=== PATIENT | female | born 1960 | race Caucasian/White ===

== ENCOUNTER 2017-08-30 12:49 | Emergency (ER) | payer BC ==
[2017-08-30] MEDS ORDERED: SODIUM CHLORIDE 0.9% 500 ML IV STA (12:55)
[2017-08-30] MEDS ORDERED: MECLIZINE 12.5 MG TAB PO STA (12:55)
[2017-08-30] MEDS ORDERED: SODIUM CHLORIDE 0.9% 1,000 ML IV STA ×2 (12:55→14:53)
--- NOTE | 2017-08-30 13:00 | ED ---
Dizziness HPI - General Stated Complaint: dizziness Time Seen by Provider: 08/30/17 12:49 Source: patient, EMS, RN notes reviewed Mode of arrival: EMS - History of Present Illness Initial Comments: This is a 57-year-old female presents by EMS with complaints of sudden onset of dizziness but 2 hours ago. She worse she has some chills with this no fevers no sweats no overt headache he states the sprain sensation was worse with her eyes open better with her eyes closed no focal weakness. Of note she was recently exposed to flu which her daughter does have. She went to bed last night feeling well and woke up this morning feeling well. Per parents patient was anxious and was noted be hyperventilating upon their initial evaluation. Also of note patient does admit that she did run 3 miles this morning prior to the events of the day. MD Complaint: dizziness, lightheadedness Timing: sudden onset Description: sense of movement - Related Data Home Medications Medication Instructions Recorded Confirmed Cetirizine HCl [Zyrtec] 10 mg PO HS 08/30/17 08/30/17 Previous Rx's Medication Instructions Recorded Meclizine [Antivert] 25 mg PO TID #20 tab 08/30/17 Potassium Chloride ER [K-Dur 20] 20 meq PO BID #14 tab 08/30/17 Allergies Allergy/AdvReac Type Severity Reaction Status Date / Time Iodinated Contrast- Oral and Allergy Severe Anaphylaxis Verified 08/30/17 13:18 IV Dye Review of Systems ROS Statement: Those systems with pertinent positive or pertinent negative responses have been documented in the HPI. ROS Other: All systems not noted in ROS Statement are negative. General Exam - General Exam Comments Initial Comments: This is a well-developed well-nourished awake alert oriented 3 female General appearance: alert, in no apparent distress Head exam: Present: atraumatic, normocephalic, normal inspection Eye exam: Present: normal appearance, PERRL, EOMI. Absent: scleral icterus, conjunctival injection, periorbital swelling ENT exam: Present: normal exam, mucous membranes moist Neck exam: Present: normal inspection. Absent: tenderness, meningismus, lymphadenopathy Respiratory exam: Present: normal lung sounds bilaterally. Absent: respiratory distress, wheezes, rales, rhonchi, stridor Cardiovascular Exam: Present: regular rate, normal rhythm, normal heart sounds. Absent: systolic murmur, diastolic murmur, rubs, gallop, clicks GI/Abdominal exam: Present: soft, normal bowel sounds. Absent: distended, tenderness, guarding, rebound, rigid Extremities exam: Present: normal inspection, full ROM, normal capillary refill. Absent: tenderness, pedal edema, joint swelling, calf tenderness Back exam: Present: normal inspection Neurological exam: Present: alert, oriented X3, CN II-XII intact Psychiatric exam: Present: normal affect, normal mood Skin exam: Present: warm, dry, intact, normal color. Absent: rash Course Vital Signs 08/30/17 08/30/17 08/30/17 12:50 14:25 15:13 Temperature 98.3 F Pulse Rate 70 84 80 Respiratory 20 15 16 Rate Blood Pressure 108/55 121/61 110/59 O2 Sat by Pulse 100 100 98 Oximetry EKG Findings - EKG Results: EKG: interpreted by NILDA, sinus rhythm (Sinus rhythm of 68. Interval 192 QRS duration 80 daily since QTC of 440/467 possible left atrial enlargement no acute ST-T wave changes.) Medical Decision Making - Medical Decision Making The patient is feeling much improved at this time she does present with symptoms consistent with vertigo as well as dehydration. She also has hypokalemia. We a long discussion regarding the findings she'll be discharged home with instructions increase oral fluids and potassium supplement. Follow- up with her doctor and return when necessary - Lab Data Result diagrams: 08/30/17 13:03 08/30/17 13:03 Lab Results 08/30/17 08/30/17 08/30/17 Range/Units 13:03 13:03 13:03 WBC 5.6 (3.8-10.6) k/uL RBC 4.50 (3.80-5.40) m/uL Hgb 12.9 (11.4-16.0) gm/dL Hct 37.3 (34.0-46.0) % MCV 82.9 (80.0-100.0) fL MCH 28.7 (25.0-35.0) pg MCHC 34.6 (31.0-37.0) g/dL RDW 14.1 (11.5-15.5) % Plt Count 165 (150-450) k/uL Neutrophils % 64 % Lymphocytes % 28 % Monocytes % 5 % Eosinophils % 1 % Basophils % 0 % Neutrophils # 3.6 (1.3-7.7) k/uL Lymphocytes # 1.6 (1.0-4.8) k/uL Monocytes # 0.3 (0-1.0) k/uL Eosinophils # 0.1 (0-0.7) k/uL Basophils # 0.0 (0-0.2) k/uL Sodium 140 (137-145) mmol/L Potassium 3.0 L* (3.5-5.1) mmol/L Chloride 107 (98-107) mmol/L Carbon Dioxide 20 L (22-30) mmol/L Anion Gap 13 mmol/L BUN 17 (7-17) mg/dL Creatinine 0.48 L (0.52-1.04) mg/dL Est GFR (MDRD) Af Amer >60 (>60 ml/min/1.73 sqM) Est GFR (MDRD) Non-Af >60 (>60 ml/min/1.73 sqM) Glucose 102 H (74-99) mg/dL Calcium 8.9 (8.4-10.2) mg/dL Magnesium 1.9 (1.6-2.3) mg/dL Total Bilirubin 0.3 (0.2-1.3) mg/dL AST 20 (14-36) U/L ALT 18 (9-52) U/L Alkaline Phosphatase 61 (38-126) U/L Total Creatine Kinase 72 (30-135) U/L CK-MB (CK-2) 1.2 (0.0-2.4) ng/mL CK-MB (CK-2) Rel Index 1.7 Total Protein 6.4 (6.3-8.2) g/dL Albumin 3.9 (3.5-5.0) g/dL Urine Color Urine Appearance (Clear) Urine pH (5.0-8.0) Ur Specific [place] (1.001-1.035) Urine Protein (Negative) Urine Glucose (UA) (Negative) Urine Ketones (Negative) Urine Blood (Negative) Urine Nitrite (Negative) Urine Bilirubin (Negative) Urine Urobilinogen (<2.0) mg/dL Ur Leukocyte Esterase (Negative) Urine WBC Clumps (None) /hpf Urine Bacteria (None) /hpf Urine Mucus (None) /hpf Urine Yeast (Budding) (None) /hpf Influenza Type A RNA (Not Detectd) Influenza Type B (PCR) (Not Detectd) 08/30/17 08/30/17 Range/Units 13:03 14:29 WBC (3.8-10.6) k/uL RBC (3.80-5.40) m/uL Hgb (11.4-16.0) gm/dL Hct (34.0-46.0) % MCV (80.0-100.0) fL MCH (25.0-35.0) pg MCHC (31.0-37.0) g/dL RDW (11.5-15.5) % Plt Count (150-450) k/uL Neutrophils % % Lymphocytes % % Monocytes % % Eosinophils % % Basophils % % Neutrophils # (1.3-7.7) k/uL Lymphocytes # (1.0-4.8) k/uL Monocytes # (0-1.0) k/uL Eosinophils # (0-0.7) k/uL Basophils # (0-0.2) k/uL Sodium (137-145) mmol/L Potassium (3.5-5.1) mmol/L Chloride (98-107) mmol/L Carbon Dioxide (22-30) mmol/L Anion Gap mmol/L BUN (7-17) mg/dL Creatinine (0.52-1.04) mg/dL Est GFR (MDRD) Af Amer (>60 ml/min/1.73 sqM) Est GFR (MDRD) Non-Af (>60 ml/min/1.73 sqM) Glucose (74-99) mg/dL Calcium (8.4-10.2) mg/dL Magnesium (1.6-2.3) mg/dL Total Bilirubin (0.2-1.3) mg/dL AST (14-36) U/L ALT (9-52) U/L Alkaline Phosphatase (38-126) U/L Total Creatine Kinase (30-135) U/L CK-MB (CK-2) (0.0-2.4) ng/mL CK-MB (CK-2) Rel Index Total Protein (6.3-8.2) g/dL Albumin (3.5-5.0) g/dL Urine Color Yellow Urine Appearance Turbid H (Clear) Urine pH 8.5 H (5.0-8.0) Ur Specific [place] 1.014 (1.001-1.035) Urine Protein 1+ H (Negative) Urine Glucose (UA) Negative (Negative) Urine Ketones 2+ H (Negative) Urine Blood Negative (Negative) Urine Nitrite Negative (Negative) Urine Bilirubin Negative (Negative) Urine Urobilinogen <2.0 (<2.0) mg/dL Ur Leukocyte Esterase Negative (Negative) Urine WBC Clumps Few H (None) /hpf Urine Bacteria Rare H (None) /hpf Urine Mucus Occasional H (None) /hpf Urine Yeast (Budding) Many H (None) /hpf Influenza Type A RNA Not Detected (Not Detectd) Influenza Type B (PCR) Not Detected (Not Detectd) Disposition Clinical Impression: Benign paroxysmal positional vertigo, Dehydration, Hypokalemia Disposition: HOME SELF-CARE Condition: Good Instructions: Dizziness (ED), Dehydration (ED), Hypokalemia (ED) Prescriptions: Meclizine [Antivert] 25 mg PO TID #20 tab Potassium Chloride ER [K-Dur 20] 20 meq PO BID #14 tab Referrals: None,Stated [Primary Care Provider] - 1-2 days
[2017-08-30 13:18] LABS: Basophils % (A) 0 %; Eosinophils # (A) 0.1 k/uL (0-0.7); Eosinophils % (A) 1 %; HCT 37.3 % (34.0-46.0); HGB 12.9 gm/dL (11.4-16.0); Lymphocytes # (A) 1.6 k/uL (1.0-4.8); Lymphocytes % (A) 28 %; MCH 28.7 pg (25.0-35.0); MCHC 34.6 g/dL (31.0-37.0); MCV 82.9 fL (80.0-100.0); Mean Platelet Volume 8.9; Monocytes # (A) 0.3 k/uL (0-1.0); Monocytes % (A) 5 %; Neutrophils # (A) 3.6 k/uL (1.3-7.7); Neutrophils % (A) 64 %; Platelet Count 165 k/uL (150-450); RDW 14.1 % (11.5-15.5); WBC 5.6 k/uL (3.8-10.6)
[2017-08-30 13:27] LABS: ALT 18 U/L (9-52); AST 20 U/L (14-36); Albumin 3.9 g/dL (3.5-5.0); Alkaline Phosphatase 61 U/L (38-126); Anion Gap 13 mmol/L; Blood Urea Nitrogen 17 mg/dL (7-17); Calcium 8.9 mg/dL (8.4-10.2); Carbon Dioxide 20 mmol/L (22-30); Chloride 107 mmol/L (98-107); Glucose 102 mg/dL (74-99); Magnesium 1.9 mg/dL (1.6-2.3); Sodium 140 mmol/L (137-145); Total Bilirubin 0.3 mg/dL (0.2-1.3); Total Protein 6.4 g/dL (6.3-8.2)
[2017-08-30 13:47] LABS: Creatine Kinase MB 1.2 ng/mL (0.0-2.4)
--- NOTE | 2017-08-30 14:25 | XR ---
EXAMINATION TYPE: XR chest 2V DATE OF EXAM: 08/30/2017 COMPARISON: NONE HISTORY: Cough, shortness of breath TECHNIQUE: Frontal and lateral views of the chest are obtained. FINDINGS: There is no focal air space opacity, pleural effusion, or pneumothorax seen. The cardiac silhouette size is within normal limits. There are overlying cardiac leads. Apical pleural thickening is present. The osseous structures are intact. IMPRESSION: No acute cardiopulmonary process.
[2017-08-30 14:38] LABS: Appearance,Urine Turbid (Clear); Bacteria,Urine Rare /hpf; Bilirubin,Urine Negative (Negative); Blood,Urine Negative (Negative); Budding Yeast,Urine Many /hpf; Color,Urine Yellow; Glucose,Urine (UA) Negative (Negative); Ketones,Urine 2+ (Negative); Leukocyte Esterase,Urine Negative (Negative); Mucus,Urine Occasional /hpf; Nitrite,Urine Negative (Negative); PH, Urine 8.5 (5.0-8.0); Protein,Urine 1+ (Negative); Specific Gravity,Urine 1.014 (1.001-1.035); Urobilinogen,Urine <2.0 mg/dL (<2.0)
[2017-08-30] MEDS ORDERED: POTASSIUM CHLORIDE ER 20 MEQ TAB.ER PO STA ×2 (14:53→15:45)
[2017-08-30] MEDS ORDERED: POTASSIUM CHLORIDE 20 MEQ in SODIUM CHLORIDE 0.9% 100 ML IVPB STA (14:53)
[2017-08-30 15:14] VITALS: RESP 16
[2017-08-30 16:33] VITALS: BP 131/63; PULSE 82; TEMP 97.9
== END 2017-08-30 16:34 | disposition home or self-care (01) ==
LOC: EC 12:49
DX: H81.10 Benign paroxysmal vertigo, unspecified ear (principal); E87.6 Hypokalemia; E86.0 Dehydration; R68.83 Chills (without fever); R06.4 Hyperventilation; Z79.899 Other long term (current) drug therapy; Z91.041 Radiographic dye allergy status; Z53.8 Procedure and treatment not carried out for other reasons
CPT/HCPCS: 36415; 71046; 80053; 81001; 82550; 82553; 83735; 85025; 87502; 93005; 96360; 96361; 99285

== ENCOUNTER → 2017-11-19 | Outpatient (CLI) | payer BC ==
--- NOTE | 2017-11-19 16:25 | BD ---
EXAMINATION TYPE: MG DEXA axial skeleton. DATE OF EXAM: 11/19/2017 COMPARISON: NONE CLINICAL HISTORY: 57-year-old female postmenopausal screening without HRT Height: 67 Weight: 145.3 FRAX RISK QUESTIONS: Alcohol (3 or more units per day): no Family History (Parent hip fracture): no Glucocorticoids (More than 3mos): no (Ex: prednisone, prednisolone, methylprednisolone, dexamethasone, and hydrocortisone). History of Fracture in Adulthood: no Secondary Osteoporosis: 1. Type 1 Diabetes: no 2. Hyperthyroidism: no 3. Menopause before 45: no 4. Malnutrition: no 5. Chronic liver disease: no Rheumatoid Arthritis: no Current Tobacco Use: no RISK FACTORS HISTORY OF: Family History of Osteoporosis: yes Active: yes Diet low in dairy products/other sources of calcium: no Postmenopausal woman: 8 years ago Lost more than 2 inches in height since high school: no Frequent falls: no MEDICATIONS: none Additional History: EXAM MEASUREMENTS: Bone mineral densitometry was performed using the [employer]eads System. Bone mineral density as measured about the Lumbar spine is: ----- L1-L4(G/cm2): 1.133 T Score Values are as follows: ----- L2: -0.8 ----- L3: -0.4 ----- L4: -0.5 ----- L1-L4: -0.6 Bone mineral density baseline Bone mineral density about the R hip (g/cm2): 1.045 Bone mineral density about the L hip (g/cm2): 1.039 T Score values are as follows: -----R Neck: 0.1 -----L Neck: 0.0 -----R Total: 0.2 -----L Total: 0.3 Bone mineral density baseline IMPRESSION: Normal (Values between +1 and -1 indicate normal bone mass). Consider repeating this study in 5 year s or sooner if there is some new clinical indication. NOTE: T-SCORE=SD OF THE YOUNG ADULT MEAN.
--- NOTE | 2017-11-20 07:49 | MM ---
Reason for exam: additional evaluation requested from prior study. Last mammogram was performed 14 years and 8 months ago. History: Patient is postmenopausal and is nulliparous. Physical Findings: Nurse Summary: 0.5cm nodule in the right breast at 10 o'clock (nurse kp). MG Diagnostic Mammo w CAD GARRET Bilateral CC and MLO view(s) were taken. XCCL, ML, and spot compression MLO view(s) were taken of the right breast. No prior studies available for comparison. The breast tissue is heterogeneously dense. This may lower the sensitivity of mammography. There is no discrete abnormality. 11 o'clock palpable marker right breast. These results were verbally communicated with the patient and result sheet given to the patient on 11/19/17. ASSESSMENT: Incomplete: need additional imaging evaluation, BI-RAD 0 RECOMMENDATION: Ultrasound of the right breast. (palpable)
--- NOTE | 2017-11-20 08:01 | USB ---
Reason for exam: additional evaluation requested from abnormal screening. History: Patient is postmenopausal and is nulliparous. US Breast RT Right breast ultrasound includes all four quadrants, the retroareolar region and axilla. Finding demonstrates a 0.7 x 0.8 x 0.2cm oval, cystic cluster at 10 o'clock versus complex cyst. 6 month follow up recommended. No abnormality seen at the 11 o'clock palpable area. Dense tissue is present here. These results were verbally communicated with the patient and result sheet given to the patient on 11/19/17. ASSESSMENT: Probably benign, BI-RAD 3 RECOMMENDATION: Ultrasound of the right breast in 6 months.
== END | disposition home or self-care (01) ==
LOC: RADMAMWWP 13:45
PROVIDERS: ATTEND Family Medicine
DX: N63.11 Unspecified lump in the right breast, upper outer quadrant (principal); R92.8 Other abnormal and inconclusive findings on diagnostic imaging of breast; Z78.0 Asymptomatic menopausal state
CPT/HCPCS: 77066; 77080

== ENCOUNTER 2020-06-02 11:55 | Observation (INO) | payer BC ==
[2020-06-02] MEDS ORDERED: HYDROcodone/APAP 5-325MG 1 EACH TAB PO STA (12:25)
--- NOTE | 2020-06-02 12:27 | ED ---
Wound/Laceration HPI - General Source: patient, RN notes reviewed, old records reviewed Mode of arrival: wheelchair Limitations: no limitations <Shahana Shah - Last Filed: 06/02/20 15:16> <Ingrid Alfaro - Last Filed: 06/06/20 22:20> - General Chief Complaint: Wound/Laceration Stated Complaint: fall face lac Time Seen by Provider: 06/02/20 12:08 - History of Present Illness Initial Comments: Patient is a 60-year-old female who presents emergency department today with chief complaint of a laceration over her nose. Patient reports that she tripped over her cat landing on the couch striking her face while wearing glasses on the edge of the couch. She reports that she has a laceration over the bridge of her nose with swelling and pain. She also has a laceration over her right eyebrow. She complains of frontal headache. Patient denies fevers or chills. Patient is questioning of her tetanus shot is up-to-date. (Shahana Shah) - Related Data Home Medications Medication Instructions Recorded Confirmed Cetirizine HCl [Zyrtec] 10 mg PO HS 08/30/17 06/02/20 Multivitamins, Thera [Multivitamin 1 tab PO DAILY 06/02/20 06/02/20 (formulary)] Allergies Allergy/AdvReac Type Severity Reaction Status Date / Time Iodinated Contrast Media Allergy Severe Anaphylaxis Verified 06/02/20 12:48 [Iodinated Contrast- Oral and IV Dye] Review of Systems ROS Other: All systems not noted in ROS Statement are negative. <Shahana Shah - Last Filed: 06/02/20 15:16> ROS Other: All systems not noted in ROS Statement are negative. <Ingrid Alfaro - Last Filed: 06/06/20 22:20> ROS Statement: Those systems with pertinent positive or pertinent negative responses have been documented in the HPI. Past Medical History Past Medical History: No Reported History History of Any Multi-Drug Resistant Organisms: None Reported Past Surgical History: No Surgical Hx Reported Past Psychological History: No Psychological Hx Reported Smoking Status: Never smoker Past Alcohol Use History: None Reported Past Drug Use History: None Reported <Shahana Shah - Last Filed: 06/02/20 15:16> General Exam Limitations: no limitations General appearance: alert, in no apparent distress Head exam: Present: atraumatic, normocephalic, normal inspection Eye exam: Present: normal appearance, PERRL, EOMI. Absent: scleral icterus, conjunctival injection, periorbital swelling ENT exam: Present: normal exam, other ( is a 6 cm laceration linear over t he nasal bridge extending from the tip of the nose to the eyebrow.). Absent: mucous membranes moist Neck exam: Present: normal inspection. Absent: tenderness, meningismus, l ymphadenopathy Respiratory exam: Present: normal lung sounds bilaterally. Absent: respiratory distress, wheezes, rales, rhonchi, stridor Cardiovascular Exam: Present: regular rate, normal rhythm, normal heart sounds. Absent: systolic murmur, diastolic murmur, rubs, gallop, clicks GI/Abdominal exam: Present: soft, normal bowel sounds. Absent: distended, tenderness, guarding, rebound, rigid Extremities exam: Present: normal inspection, full ROM, normal capillary refill. Absent: tenderness, pedal edema, joint swelling, calf tenderness Back exam: Present: normal inspection Neurological exam: Present: alert, oriented X3, CN II-XII intact Psychiatric exam: Present: normal affect, normal mood Skin exam: Present: warm, dry, intact, normal color. Absent: rash <Shahana Shah - Last Filed: 06/02/20 15:16> - General Exam Comments Initial Comments: 60-year-old female. Alert and oriented 3. (Shahana Shah) Course Vital Signs 06/02/20 06/02/20 12:01 14:47 Temperature 98.2 F 97.9 F Pulse Rate 69 77 Respiratory 18 18 Rate Blood Pressure 90/60 127/72 O2 Sat by Pulse 99 98 Oximetry Medical Decision Making - Lab Data Result diagrams: 06/02/20 14:38 06/02/20 14:38 - Radiology Data Radiology results: report reviewed <Shahana Shah - Last Filed: 06/02/20 15:16> - Lab Data Result diagrams: 06/02/20 14:38 06/02/20 14:38 <Ingrid Alfaro - Last Filed: 06/06/20 22:20> - Medical Decision Making 60-year-old female presenting to the emergency department today after a fall from tripping over her cat onto her couch. She sustained a 6 cm laceration over the nasal bridge that tip of her nose. No concern at this moment for cartilage disruption or intranasal laceration. Patient's whom is reportedly close friends with Dr. Snyder had requested for him to evaluate the Patient. Patient case was discussed with Dr. Alfaro, whom discussed with Dr. Snyder whom recommended closure under sedation. Pt will be given kefzol and will be kept in ER until surgery likely after 5pm. Pt had wet to dry dressing over nose. When discussing with administration, pt has to be admitted to Dr. Kaye and can be discharged from PACU from him. (Shahana Shah) I was available for consultation in the emergency department. The history and physical exam were done by the midlevel provider. I was consulted for this patients care. I reviewed the case with the midlevel provider and based on their presentation of the patient, I agree with the assessment, medical decision making and plan of care as documented. Spoke with Dr. Snyder who agreed to take the patient to the OR for repair. Chart was dictated using [employer] dictation software. Attempts were made to correct any dictation errors however some typographical errors may persist. Patient was seen during a national state of emergency due to the Covid-19 pandemic. (Ingrid Alfaro) - Lab Data Lab Results 06/02/20 06/02/20 06/02/20 Range/Units 14:38 14:38 14:38 WBC 9.2 (3.8-10.6) k/uL RBC 4.61 (3.80-5.40) m/uL Hgb 13.1 (11.4-16.0) gm/dL Hct 40.0 (34.0-46.0) % MCV 86.7 (80.0-100.0) fL MCH 28.5 (25.0-35.0) pg MCHC 32.9 (31.0-37.0) g/dL RDW 13.4 (11.5-15.5) % Plt Count 170 (150-450) k/uL Neutrophils % 79 % Lymphocytes % 15 % Monocytes % 4 % Eosinophils % 1 % Basophils % 0 % Neutrophils # 7.3 (1.3-7.7) k/uL Lymphocytes # 1.4 (1.0-4.8) k/uL Monocytes # 0.4 (0-1.0) k/uL Eosinophils # 0.1 (0-0.7) k/uL Basophils # 0.0 (0-0.2) k/uL PT 9.7 (9.0-12.0) sec INR 0.9 (<1.2) APTT 21.2 L (22.0-30.0) sec Sodium 137 (137-145) mmol/L Potassium 3.9 (3.5-5.1) mmol/L Chloride 104 (98-107) mmol/L Carbon Dioxide 27 (22-30) mmol/L Anion Gap 6 mmol/L BUN 19 H (7-17) mg/dL Creatinine 0.50 L (0.52-1.04) mg/dL Est GFR (CKD-EPI)AfAm >90 (>60 ml/min/1.73 sqM) Est GFR (CKD-EPI)NonAf >90 (>60 ml/min/1.73 sqM) Glucose 102 H (74-99) mg/dL Calcium 9.5 (8.4-10.2) mg/dL Total Bilirubin 0.4 (0.2-1.3) mg/dL AST 29 (14-36) U/L ALT 16 (4-34) U/L Alkaline Phosphatase 69 (38-126) U/L Total Protein 7.4 (6.3-8.2) g/dL Albumin 4.5 (3.5-5.0) g/dL - Radiology Data Acute fracture evident cervical sign. No acute hemorrhage or midline shift. Acute nondisplaced nasal bone fracture. Incidental acute chronic paranasal sinus disease. (Shahana Shah) Disposition Is patient prescribed a controlled substance at d/c from ED?: No Time of Disposition: 15:29 <Shahana Shah - Last Filed: 06/02/20 15:16> <Ingrid Alfaro - Last Filed: 06/06/20 22:20> Clinical Impression: Nasal laceration, Nasal fracture Disposition: [facility] Condition: Stable
[2020-06-02] MEDS ORDERED: MORPHINE SULFATE 4 MG/ML SYRINGE IM STA (12:43)
[2020-06-02] MEDS ORDERED: DIPH,PERTUS(ACELL)TETVAC-LF 0.5 ML VIAL IM ONE (12:44)
--- NOTE | 2020-06-02 13:49 | CT ---
EXAMINATION TYPE: CT brain cspine wo con, CT facial bones wo con DATE OF EXAM: 06/02/2020 HISTORY: Pain, nasal bridge laceration (accession [id number]), Pain, nasal bridge laceration (accession [id number]). Injury with headache and neck pain. CT DLP: 1073.1 mGycm. Automated Exposure Control for Dose Reduction was Utilized. TECHNIQUE: CT scan of the head, facial bones, and cervical spine are all performed without contrast. COMPARISON: None. FINDINGS: There is no acute intracranial hemorrhage or midline shift identified. Ventricles and sul ci within normal limits in size for patient's age. The calvarium is intact. The mandible is intact. Temporomandibular joints are maintained bilaterally. Acute nondisplaced fract ure through the nasal bridge with mild to moderate adjacent soft tissue swelling and subcutaneous air . The zygomatic arches are intact bilaterally. Orbital floors and bowman are intact. The globes are in tact bilaterally. Conal fat is preserved. Pterygoid plates are intact. The maxilla is intact. Nasal s eptum is deviated to right of midline. Mucosal thickening with opacification left sphenoid sinus. Mod erate mucosal thickening bilateral posterior ethmoid sinuses with patchy opacification. Mild to moder ate mucosal thickening right greater than left maxillary sinuses. Dependent fluid in the right maxill yovani sinus. Cervical spine is visualized in its entirety from C1 through upper thoracic levels and demonstrates s traightened alignment without evidence of acute fracture or dislocation. Slight grade 1 anterolisthes is C4 on C5. Prevertebral soft tissue appears within normal limits. The C1-C2 articulation is within normal limits on the coronal images. Vertebral body heights and disc space heights are fairly well- maintained. Spinal canal grossly preserved. Axial images show left-sided uncovertebral facet degenerative changes C4-C5 level and right C3-C4 lev el without significant neural foraminal narrowing. Posterior right paracentral disc protrusion efface s ventral thecal sac at C5-C6 level axial image 63. Thyroid gland is within normal limits. Lung apice s show mild to moderate pleural/chronic mild scarring without pneumothorax. IMPRESSION: 1. There is no acute fracture or dislocation evident in the cervical spine. 2. No acute intracranial hemorrhage or midline shift is seen. 3. Acute nondisplaced nasal bone fractures. Incidental acute on chronic paranasal sinus disease.
[2020-06-02] MEDS ORDERED: SODIUM CHLORIDE 0.9% 1,000 ML IV SCH (14:30)
[2020-06-02 14:51] LABS: Basophils % (A) 0 %; Eosinophils # (A) 0.1 k/uL (0-0.7); Eosinophils % (A) 1 %; HGB 13.1 gm/dL (11.4-16.0); Lymphocytes # (A) 1.4 k/uL (1.0-4.8); Lymphocytes % (A) 15 %; MCH 28.5 pg (25.0-35.0); MCHC 32.9 g/dL (31.0-37.0); MCV 86.7 fL (80.0-100.0); Mean Platelet Volume 8.3; Monocytes # (A) 0.4 k/uL (0-1.0); Monocytes % (A) 4 %; Neutrophils # (A) 7.3 k/uL (1.3-7.7); Neutrophils % (A) 79 %; Platelet Count 170 k/uL (150-450); RBC 4.61 m/uL (3.80-5.40); RDW 13.4 % (11.5-15.5); WBC 9.2 k/uL (3.8-10.6)
[2020-06-02 14:58] LABS: ALT 16 U/L (4-34); AST 29 U/L (14-36); African American GFR (CKD) >90 (>60 ml/min/1.73 sqM); Albumin 4.5 g/dL (3.5-5.0); Alkaline Phosphatase 69 U/L (38-126); Anion Gap 6 mmol/L; Blood Urea Nitrogen 19 mg/dL (7-17); Calcium 9.5 mg/dL (8.4-10.2); Carbon Dioxide 27 mmol/L (22-30); Chloride 104 mmol/L (98-107); Glucose 102 mg/dL (74-99); Non-African American GFR(CKD) >90 (>60 ml/min/1.73 sqM); Potassium 3.9 mmol/L (3.5-5.1); Sodium 137 mmol/L (137-145); Total Bilirubin 0.4 mg/dL (0.2-1.3); Total Protein 7.4 g/dL (6.3-8.2)
[2020-06-02 15:03] LABS: INR 0.9 (<1.2); Prothrombin Time 9.7 sec (9.0-12.0)
[2020-06-02 15:24] LABS: Partial Thromboplastin Time 21.2 sec (22.0-30.0)
[2020-06-02] MEDS ORDERED: KETOROLAC 15 MG/ML 1 ML VIAL IVP PRN (15:29)
[2020-06-02] MEDS ORDERED: ACETAMINOPHEN TAB 325 MG TAB PO PRN (15:29)
[2020-06-02] MEDS ORDERED: IBUPROFEN 400 MG TAB PO PRN (15:29)
[2020-06-02] MEDS ORDERED: NALOXONE 0.4 MG/ML 1 ML VIAL IV PRN (15:29)
[2020-06-02] MEDS ORDERED: MORPHINE SULFATE 4 MG/ML SYRINGE IV PRN (15:29)
[2020-06-02] MEDS ORDERED: HYDROcodone/APAP 5-325MG 1 EACH TAB PO PRN (15:29)
[2020-06-02] MEDS ORDERED: ONDANSETRON 4 MG/2 ML VIAL IVP PRN (15:29)
[2020-06-02] MEDS ORDERED: IV FLUID CONTINUATION 1,000 ML IV ONE (15:54)
[2020-06-02 16:09] VITALS: RESP 16
[2020-06-02] MEDS ORDERED: FAMOTIDINE 20 MG/2 ML VIAL IV ONE (16:19)
[2020-06-02] MEDS ORDERED: fentaNYL (PF) 50 MCG/ML 2 ML AMP ONE (16:39)
[2020-06-02] MEDS ORDERED: MIDAZOLAM 2 MG/2 ML VIAL ONE (16:39)
[2020-06-02] MEDS ORDERED: SUCCINYLCHOLINE CHLORIDE 100 MG/5 ML SYR IV ONE (16:39)
[2020-06-02] MEDS ORDERED: PHENYLEPHRINE-0.9% NACL SYG 1 MG/10 ML SYRINGE ONE (16:39)
[2020-06-02] MEDS ORDERED: PROPOFOL 10 MG/ML 20 ML VIAL IV ONE (16:39)
[2020-06-02] MEDS ORDERED: LIDOCAINE 1% INJ 10MG/ML (20 ML MDV) ONE (16:39)
[2020-06-02] MEDS ORDERED: LIDOCAINE 1%-EPI 1:100,000 20 ML VIAL SQ ONE ×3 (17:01)
[2020-06-02] MEDS ORDERED: BACITRACIN ZINC 500 UNIT/GM OINT 28.4 GM TUBE TOPICAL ONE (17:47)
--- NOTE | 2020-06-02 18:00 | P.OP ---
Date of Procedure: 06/02/20 Preoperative Diagnosis: Left nasal and right medial brow lacerations Nasal fracture Postoperative Diagnosis: Same, in addition right intranasal laceration Procedure(s) Performed: Complex repair left nasal laceration 8.5 cm Layered closure 1.5 cm right medial brow laceration Simple repair right intranasal laceration 1.5 cm Anesthesia: WHITNEY Surgeon: Noah Kaye Estimated Blood Loss (ml): 2 Pathology: none sent Condition: stable Disposition: PACU Indications for Procedure: This is a 60-year-old white female who in late this morning tripped and fell striking her nose on the couch with her glasses on and sustaining right medial brow and extensive left nasal laceration as well as a nondisplaced nasal fracture Operative Findings: Complex laceration vertically from the nasal dorsum all the way down to the nasal tip down to the periosteum superiorly and perichondrium of the nasal tip, irregular laceration left medial brow, right mucosal intranasal laceration vertically anterior to the inferior turbinate Description of Procedure: The patient was brought in the operative suite and placed in a supine position. Patient underwent induction of general anesthesia with oral endotracheal intubation without difficulty. The patient was prepped and draped using aseptic fashion. The right brow laceration was explored and no foreign visor noted. Copious sterile irrigation was performed. This laceration was able to be closed in the subcutaneous layer with inverted interrupted 5-0 chromic suture skin closed with simple interrupted 6-0 Prolene sutures. Bacitracin ointment was placed. The nasal laceration was quite complex due to the depth and length of this laceration. It was also irregular at the midportion and therefore some skin required debridement as it was excoriated and macerated. The wound was explored and the periosteum was intact as well as the perichondrium. No fractures were visualized or palpated and the nasal dorsum appeared straight and therefore closed nasal reduction was not performed. Due to the need for debridement of the irregular margins this required rotation of tissue into the defect making this more complex. The muscular layers were closed with inverted interrupted 5- 0 chromic suture subcutaneous tissue was closed with inverted interrupted 6-0 chromic suture skin was closed with running locking 5-0 Prolene suture. Bacitracin ointment was placed. There was some mild oozing intranasally on the right and therefore this was inspected further and there was a laceration vertically anterior to the tip of the middle turbinate and therefore this was repaired with simple interrupted 4-0 chromic sutures. This controlled the epistaxis. Nasal septum appeared intact and with no hematoma. Good hemostasis was noted. Bacitracin ointment was placed on the external nasal laceration as well as a Telfa dressing. The patient was then allowed to emerge from general anesthesia having tolerated procedure well was extubated in the operating suite and transferred to the postop recovery area in satisfactory condition.
[2020-06-02] MEDS ORDERED: HYDROmorphone 0.5 MG/0.5 ML SYRINGE IVP ONE (18:14)
[2020-06-02 18:16] VITALS: TEMP 97.6
[2020-06-02] MEDS ORDERED: ONDANSETRON 4 MG/2 ML VIAL IVP ONE (19:52)
[2020-06-02] MEDS ORDERED: DEXAMETHASONE SOD PHOSPHATE 10 MG/ML 1 ML VIAL IV ONE (19:53)
[2020-06-02 19:58] VITALS: BP 126/71; PULSE 80
[2020-06-03] MEDS ORDERED: PANTOPRAZOLE 40 MG/10 ML VIAL IV SCH (09:00)
== END 2020-06-02 20:27 | disposition home or self-care (01) ==
LOC: EC 11:55 → 3NCARDOBS 16:00
PROVIDERS: ADMIT Otolaryngology; ATTEND Otolaryngology
DX: S01.21XA Laceration without foreign body of nose, initial encounter (principal); S02.2XXA Fracture of nasal bones, initial encounter for closed fracture; S01.81XA Laceration without foreign body of other part of head, initial encounter; W01.190A Fall on same level from slipping, tripping and stumbling with subsequent striking against furniture, initial encounter
CPT/HCPCS: 12051; 90471; 96365; 96372; 99285; 36415; 93005; 80053; 85025; 85610; 85730; 72125; 70486; 70450; 90715; 13152; 13153; G0378; J2250; J2270; J1100; J0690; J2405; J2001; J3010; J2370; J0330; J2704; J1170

== ENCOUNTER 2021-04-07 08:19 | Emergency (ER) | payer BC ==
[2021-04-07 08:29] VITALS: TEMP 97.5
[2021-04-07] MEDS ORDERED: HYDROmorphone 0.5 MG/0.5 ML SYRINGE IVP STA (08:30)
--- NOTE | 2021-04-07 08:47 | XR ---
EXAMINATION TYPE: XR shoulder limited LT DATE OF EXAM: 04/07/2021 CLINICAL HISTORY: Injury with pain TECHNIQUE: 2 Limited views of the left shoulder are attempted. COMPARISON: Chest x-ray August 30, 2017. FINDINGS: Slightly suboptimal due to inability to properly position patient due to pain. The humeral head is inferiorly and medially displaced relative to the osseous glenoid on the attempted frontal pr ojection with anterior displacement on transthoracic lateral projection. Finding consistent with ante rior dislocation. No acute fracture clearly seen. Overlying clothing or blanket material is present. IMPRESSION: As above. Anterior dislocation without identified fracture.
--- NOTE | 2021-04-07 09:05 | XR ---
Left shoulder HISTORY: Dislocation, trauma, post reduction Single frontal view of the left shoulder There is been interval reduction of patient's left shoulder dislocation. There is a minimally displac ed fracture likely involving the greater tuberosity. IMPRESSION: Left proximal humeral fracture, interval reduction
[2021-04-07] MEDS ORDERED: ETOMIDATE 2 MG/ML 10 ML VIAL IVP STA (09:07)
[2021-04-07] MEDS ORDERED: KETOROLAC 15 MG/ML 1 ML VIAL IVP STA (09:11)
[2021-04-07 09:35] VITALS: PULSE 74
[2021-04-07] MEDS ORDERED: ACET/COD 300 MG/30 MG STARTER PACK 6 TAB BTL PO STA (09:56)
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
[2021-04-07] MEDS ORDERED: ONDANSETRON 4 MG/2 ML VIAL IVP STA (10:17)
[2021-04-07] MEDS ORDERED: ONDANSETRON 4 MG ODT STARTER PACK 2 TAB BTL PO STA (10:18)
[2021-04-07 11:05] VITALS: BP 128/62; RESP 18
== END 2021-04-07 11:32 | disposition home or self-care (01) ==
LOC: EC 08:19
DX: S42.252A Displaced fracture of greater tuberosity of left humerus, initial encounter for closed fracture (principal); S43.005A Unspecified dislocation of left shoulder joint, initial encounter; Z91.041 Radiographic dye allergy status; V18.0XXA Pedal cycle driver injured in noncollision transport accident in nontraffic accident, initial encounter; Y93.55 Activity, bike riding
CPT/HCPCS: 99283; 96374; 96375 ×2; 23650; 99152; 99153; 73020; J2405; J1885; S0119; J1170